=== PATIENT | female | born 1970 ===

== ENCOUNTER 2016-07-26 01:04 | Emergency (ER) | payer OTHER ==
[2016-07-26] MEDS ORDERED: Sodium Chloride 0.9% 1,000 ML IV STA (01:26)
--- NOTE | 2016-07-26 01:32 | ED PDOC ---
Arrival/HPI - General Chief Complaint: Abdominal Pain Time Seen by Provider: 07/26/16 01:17 Historian: Patient - History of Present Illness Narrative History of Present Illness (Text): 07/26/16 01:27 Geetha Banegas is a 46 year old female who presents to the emergency department for evaluation of sudden onset right flank pain which began an hour and a half prior to arrival. Reports that pain is worsened with movement. States she took a muscle relaxant for minimal relief. Denies any urinary symptoms or hematuria. Denies fever, chills, headache, chest pain, cough,shortness of breath, nausea, vomiting, diarrhea, or any other complaints at this time. Time/Duration: 1-3 hours Symptom Onset: Sudden Symptom Course: Unchanged Severity Level: Mild Activities at Onset: Light Context: Home Past Medical History - Provider Review Nursing Documentation Reviewed: Yes - Infectious Disease Hx of Infectious Diseases: None - Psychiatric Hx Substance Use: No Family/Social History - Physician Review Nursing Documentation Reviewed: Yes Family/Social History: No Known Family HX Smoking Status: Never Smoked Hx Alcohol Use: No Hx Substance Use: No Allergies/Home Meds Allergies/Adverse Reactions: Allergies No Known Allergies Allergy (Unverified 07/26/16 01:25) Review of Systems - Physician Review All systems were reviewed & negative as marked: Yes - Review of Systems Constitutional: Normal. absent: Fatigue, Fevers Respiratory: Normal. absent: SOB, Cough Cardiovascular: Normal. absent: Chest Pain Gastrointestinal: Normal. absent: Abdominal Pain, Diarrhea, Nausea, Vomiting Musculoskeletal: Back Pain (right flank pain ) Psychiatric: Normal Physical Exam Vital Signs Reviewed: Yes Vital Signs Temp Pulse Resp BP Pulse Ox 07/26/16 03:48 98 F 78 19 134/90 98 07/26/16 01:19 98.2 F 118 H 20 158/101 H 99 Temperature: Afebrile Blood Pressure: Hypertensive Pulse: Tachycardic Respiratory Rate: Normal Appearance: Positive for: Well-Appearing, Non-Toxic, Comfortable Pain Distress: None Mental Status: Positive for: Alert and Oriented X 3 - Systems Exam Head: Present: Atraumatic, Normocephalic Pupils: Present: PERRL Extroacular Muscles: Present: EOMI Conjunctiva: Present: Normal Mouth: Present: Moist Mucous Membranes Neck: Present: Normal Range of Motion Respiratory/Chest: Present: Clear to Auscultation, Good Air Exchange. No: Respiratory Distress, Accessory Muscle Use Cardiovascular: Present: Regular Rate and Rhythm, Normal S1, S2. No: Murmurs Abdomen: Present: Normal Bowel Sounds. No: Tenderness, Distention, Peritoneal Signs, Rebound, Guarding Back: Present: CVA Tenderness (right CVA tenderness ) Neurological: Present: GCS=15, CN II-XII Intact, Speech Normal Skin: Present: Warm, Dry, Normal Color. No: Rashes Psychiatric: Present: Alert, Oriented x 3, Normal Insight, Normal Concentration Medical Decision Making ED Course and Treatment: 07/26/16 01:34 Impression: A 46 year old female who presents to emergency department for evaluation of right flank pain which began an hour and a half prior to arrival. Plan: -- CT abdomen pelvis -- Labs -- Chest X-ray -- IV fluids -- Toradol -- HCG -- Urinalysis -- Reassess and disposition Progress Notes: 07/26/16 04:37 CT abdomen pelvis reviewed: IMPRESSION: 1. Scattered infiltrates in the lung bases which could be due to pneumonia. Correlation with any signs of infection would be helpful. 2. Mild fecal retention in the colon consistent with constipation. 3. Punctate nonobstructing stone upper pole left kidney. No stones in the right kidney or in either ureter and no hydronephrosis. 07/26/16 05:01 On re-evaluation, patient states pain has improved markedly and is in no acute distress. I have discussed the results and plan with the patient, who expresses understanding. Patient in agreement with plan to be discharged home. Patient is stable for discharge. Patient was instructed to follow up with physician or return if symptoms worsen or new concerning symptoms arise. - Lab Interpretations Lab Results: 07/26/16 01:57 07/26/16 01:57 Lab Results 07/26/16 03:05: Urine Color Yellow, Urine Appearance Slight-cloudy, Urine pH 5.5 , Ur Specific [place] >= 1.030, Urine Protein Trace H, Urine Glucose (UA) Negative, Urine Ketones Negative, Urine Blood Trace-intact H, Urine Nitrate Negative, Urine Bilirubin Negative, Urine Urobilinogen 0.2, Ur Leukocyte Esterase Negative, Urine RBC 0 - 2, Urine WBC 0 - 2, Ur Epithelial Cells 1 - 3, Urine Bacteria Occ, Urine HCG, Qual Negative 07/26/16 01:57: WBC 7.4, RBC 3.99, Hgb 11.8 L, Hct 34.9 L, MCV 87.5, MCH 29.6, MCHC 33.8, RDW 13.5, Plt Count 299, MPV 10.2, Sodium 139, Potassium 3.7, Chloride 102, Carbon Dioxide 25, Anion Gap 16, BUN 18, Creatinine 0.6, Est GFR ( Amer) > 60, Est GFR (Non-Af Amer) > 60, Random Glucose 121 H, Calcium 9.6, Total Bilirubin 0.9, AST 25, ALT 15, Alkaline Phosphatase 64, Total Protein 8.0, Albumin 4.7, Globulin 3.3, Albumin/Globulin Ratio 1.4 I have reviewed the lab results: Yes - RAD Interpretation Narrative RAD Interpretations (Text): EXAM: CT Abdomen and Pelvis Without Intravenous Contrast FINDINGS: Lower thorax: Scattered infiltrates in the lung bases which could be due to pneumonia. ABDOMEN: Liver: Unremarkable. Gallbladder and bile ducts: Unremarkable. No calcified stones. No ductal dilation. Pancreas: Unremarkable. No ductal dilation. Spleen: Unremarkable. No splenomegaly. Adrenals: Unremarkable. No mass. Kidneys and ureters: Punctate nonobstructing stone upper pole left kidney. No stones in the right kidney or in either ureter and no hydronephrosis. Stomach and bowel: Mild fecal retention in the colon consistent with constipation. Appendix: Normal appendix. PELVIS: Bladder: Unremarkable. No stones. Reproductive: Unremarkable as visualized. ABDOMEN and PELVIS: Intraperitoneal space: Unremarkable. No free air. No significant fluid collection. Bones/joints: No acute fracture. No dislocation. Soft tissues: Small umbilical hernia containing fat. Vasculature: Unremarkable. No abdominal aortic aneurysm. Lymph nodes: Unremarkable. No enlarged lymph nodes. IMPRESSION: 1. Scattered infiltrates in the lung bases which could be due to pneumonia. Correlation with any signs of infection would be helpful. 2. Mild fecal retention in the colon consistent with constipation. 3. Punctate nonobstructing stone upper pole left kidney. No stones in the right kidney or in either ureter and no hydronephrosis. Radiology Orders: 07/26/16 01:25 CHEST PORTABLE [RAD] Stat 07/26/16 02:27 ABD & PELVIS W/O PO OR IV CONT [CT] Stat Cylinder Devalver: Radiologist - Medication Orders Current Medication Orders: Discontinued Medications Sodium Chloride (Sodium Chloride 0.9%) 1,000 mls @ 999 mls/hr IV .Q1H1M STA Stop: 07/26/16 02:26 Last Admin: 07/26/16 02:04 Dose: 999 MLS/HR eMAR Start Stop Document 07/26/16 02:04 MARCEL (Rec: 07/26/16 02:05 [id number]) Intravenous Solution Start Date 07/26/16 Start Time 02:04 End Date 07/26/16 End time 03:04 Total Infusion Time 60 Ketorolac Tromethamine (Toradol) 30 mg IVP ONCE ONE Stop: 07/26/16 01:27 Last Admin: 07/26/16 02:05 Dose: 30 MG IVP Administration Document 07/26/16 02:05 MARCEL (Rec: 07/26/16 02:05 [id number]) Charges for Administration # of IVP Administrations 1 Morphine Sulfate (Morphine) 4 mg IVP STAT STA Stop: 07/26/16 03:21 Ondansetron HCl (Zofran Inj) 4 mg IVP ONCE ONE Stop: 07/26/16 03:21 - Scribe Statement The provider has reviewed the documentation as recorded by the Pablo Jeffery Provider Attestation: All medical record entries made by the Pablo were at my direction and personally dictated by me. I have reviewed the chart and agree that the record accurately reflects my personal performance of the history, physical exam, medical decision making, and the department course for this patient. I have also personally directed, reviewed, and agree with the discharge instructions and disposition. Disposition/Present on Arrival - Present on Arrival Any Indicators Present on Arrival: No History of DVT/PE: No History of Uncontrolled Diabetes: No Urinary Catheter: No History of Decub. Ulcer: No History Surgical Site Infection Following: None - Disposition Have Diagnosis and Disposition been Completed?: Yes Diagnosis: Flank pain Disposition: HOME/ ROUTINE Disposition Time: 04:49 Patient Plan: Discharge Condition: GOOD Discharge Instructions (ExitCare): Flank Pain (ED) Additional Instructions: Drink plenty of liquids/take meds as prescribed/follow up with your doctor this week/any recurrent symptoms return to the emergency room Prescriptions: Naproxen [Naprosyn] 500 mg PO BID PRN #14 tab PRN Reason: Pain Azithromycin [Zithromax] 250 mg PO DAILY #6 tab
[2016-07-26 02:31] LABS: ALB/GLOB RATIO 1.4 (1.1-1.8); ALKALINE PHOSPHATASE 64 U/L (38-133); ALT/SGPT 15 U/L (7-56); AST/SGOT 25 U/L (15-39); BILIRUBIN,TOTAL 0.9 mg/dL (0.2-1.3); BLOOD UREA NITROGEN 18 mg/dL (7-21); CALCIUM 9.6 mg/dL (8.4-10.5); CARBON DIOXIDE 25 mmol/L (21-33); CHLORIDE 102 mmol/L (95-110); GFR AFRICAN-AMERICAN > 60; GLUCOSE,RANDOM 121 mg/dL (70-110); POTASSIUM 3.7 mmol/L (3.6-5.0); SODIUM 139 mmol/L (132-148)
[2016-07-26 02:47] LABS: HEMATOCRIT 34.9 % (36.0-48.0); MEAN CELL VOLUME 87.5 fL (80.0-105.0); MEAN CORPUSCULAR HEMOGLOBIN 29.6 pg (25.0-35.0); MEAN CORPUSCULAR HGB CONC 33.8 g/dl (31.0-37.0); MEAN PLATELET VOLUME 10.2 fl (7.0-11.0); RED CELL DISTRIBUTION WIDTH 13.5 % (11.5-14.5); WHITE BLOOD COUNT 7.4 10^3/ul (4.5-11.0)
[2016-07-26] MEDS ORDERED: Morphine 4 mg/ml ISec IVP STA (03:20)
[2016-07-26 03:26] LABS: PH,URINE 5.5 (4.7-8.0); URINE BILIRUBIN NEGATIVE (NEGATIVE); URINE BLOOD TRACE-INTACT (NEGATIVE); URINE GLUCOSE (UA) NEGATIVE (NEGATIVE); URINE KETONE NEGATIVE (NEGATIVE); URINE LEUKOCYTE ESTERASE NEGATIVE Leu/uL (NEGATIVE); URINE PROTEIN TRACE mg/dL (<30 mg/dL); URINE UROBILINOGEN 0.2 E.U./dL (<1 E.U./dL)
[2016-07-26 03:32] LABS: URINE APPEARANCE SLIGHT-CLOUDY (CLEAR); URINE COLOR YELLOW (YELLOW)
[2016-07-26 03:38] LABS: URINE RBC 0 - 2 /hpf (0-2); URINE WBC 0 - 2 /hpf (0-6)
[2016-07-26 03:39] LABS: URINE BACTERIA OCC (NEG)
[2016-07-26 03:48] VITALS: BP 134/90; PULSE 78; RESP 19; TEMP 98; O2SAT 98
--- NOTE | 2016-07-26 07:39 | CT ---
PROCEDURE: CT Abdomen and Pelvis without intravenous contrast HISTORY: Right flank pain COMPARISON: None. TECHNIQUE: CT scan of the abdomen and pelvis was performed without administration of intravenous or oral contrast. Coronal and sagittal reformatted images were obtained. Radiation dose: Total exam DLP = 591.51 mGy-cm. FINDINGS: LOWER THORAX: There is subsegmental atelectasis in the lingula, right middle lobe and both lower lobes. LIVER: The liver is normal in size. There is no intrahepatic ductal dilatation. GALLBLADDER AND BILE DUCTS: The gallbladder is contracted. PANCREAS: The pancreas is normal in size without calcifications or ductal dilatation. SPLEEN: The spleen is normal in size. ADRENALS: Both adrenal glands are normal in size without discrete nodule. KIDNEYS AND URETERS: Both kidneys are normal in size. There is no hydronephrosis or right nephrolithiasis. There is a punctate nonobstructing stone in the upper pole of the left kidney. VASCULATURE: No aortic aneurysm. BOWEL: The small bowel loops are normal in caliber. There is moderate amount of stool in the colon. There is scattered colonic diverticulosis without CT evidence for acute diverticulitis. APPENDIX: The appendix is normal. PERITONEUM: No free fluid or intraperitoneal air. LYMPH NODES: No pathologic lymphadenopathy. BLADDER: Normal in appearance. REPRODUCTIVE: The uterus is normal in size. BONES: Within normal limits for the patient's age. OTHER FINDINGS: None. IMPRESSION: No acute abdominal or pelvic abnormality. Specifically, no evidence of right nephrolithiasis, obstructive uropathy or acute appendicitis. Punctate nonobstructing stone in the upper pole of the left kidney. Constipation. Clear evidence of bowel obstruction. A preliminary report was provided by [employer].
--- NOTE | 2016-07-26 08:08 | RAD ---
HISTORY: Right flank pain COMPARISON: No prior. FINDINGS: LUNGS: There are low lung volumes. There is bibasilar airspace disease. PLEURA: No significant pleural effusion identified, no pneumothorax apparent. CARDIOVASCULAR: Normal. OSSEOUS STRUCTURES: No significant abnormalities. VISUALIZED UPPER ABDOMEN: Normal. OTHER FINDINGS: None. IMPRESSION: Low lung volumes which may be related to poor inspiratory effort. Bibasilar airspace disease may represent subsegmental atelectasis or pneumonia. Follow-up is advised.
== END 2016-07-26 05:13 | disposition home or self-care (01) ==
LOC: ED 01:04 → MERGE 01:04 → ED 05:13
DX: R10.9 Unspecified abdominal pain (principal)
CPT/HCPCS: 71010; 74176; 80053; 81001; 84703; 85027; 96361; 96374; 99283; J1885; J7040